=== PATIENT | male | born 1985 | race Caucasian/White ===

== ENCOUNTER 2020-03-22 08:53 | Emergency (ER) | payer OTHER ==
[~2020-03-22] VITALS: Ht 165 cm; Wt 95.0 kg
[2020-03-22 09:00] VITALS: BP 163/110
[2020-03-22] MEDS ORDERED: TRZ50T PO (09:31)
[2020-03-22] MEDS ORDERED: ARIP20TA9 PO (09:31)
[2020-03-22] MEDS ORDERED: HYDR50CA3 PO (09:31)
[2020-03-22] MEDS ORDERED: LITH300T3 PO (09:31)
[2020-03-22] MEDS ORDERED: LISI10TA2 PO (09:31)
[2020-03-22] MEDS ORDERED: PRAZ5CAP2 PO (09:31)
[2020-03-22] MEDS ORDERED: ALLO300T2 PO (09:31)
[2020-03-22] MEDS ORDERED: MTP100TCR PO (09:31)
[2020-03-22] MEDS ORDERED: LORA-404 PO (09:48)
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
--- NOTE | 2020-03-22 11:05 | NUR ---
PT IN LOBBY OF ED. PT STATES [facility] THAT ARRANGEMENTS CAN BE MADE FOR [place] TO GO [place] [facility]. NURSE STATES HE IS HOMICIDAL. PT DENIES BEING HOMICIDAL AND HAS VERY MINIMAL ANXIETY AT THIS X. EXPLAINED TO THIS RN THAT THERE ARE NO SERVICES AVAILABLE AT THIS X. DR DOES NOT BELIEVE THAT PT QUALIFIES FOR TRANSFER OR INPATIENT CARE AT X.
--- NOTE | 2020-03-22 11:18 | NUR ---
SPOKE TO C[facility]I [facility]SE FROM [facility], NO TRANSPORTATION AVIALABLE TODAY TO [facility] [place], SHE WAS TOLD PT WAS HOMICIDAL. WHEN SPOKE W PT, PT DEINES BEING SUICIAL OR WANTING TO HURT ANYONE ELSE. SHE STATES SHE WAS TOLD BY [place] TRIAGE NURSE THAT HE WAS HOMICIDAL.
--- NOTE | 2020-03-22 11:30 | NUR ---
SPOKE TO PT OUT IN LOBBY OF ED. PT CONT TO DENY BEING SUICIAL OR HOMICIDAL AT THIS X. STATES IS ANGRY W SISTERS BOYFRIEND.
--- NOTE | 2020-03-22 11:51 | NUR ---
SPOKE W [facility]. SHE WILL HAVE [facility] CALL HIM AND TALK W HIM
--- NOTE | 2020-03-22 12:15 | NUR ---
SPOKE Tiesha AVALOS FROM [facility]. TRYING TO CALL PT TO CHECK ON HIM. WHEN NUMBER TAKEN TO PT HE WAS CURRENTLY ON PHONE Tiesha AVALOS, HEARD HIM TAKING SAYING " TELLING HIM HE WAS NOT SUCICIDAL OR HOMICIDAL."
== END 2020-03-22 09:55 | disposition home or self-care (01) ==
LOC: ER 08:56
DX: R45.1 Restlessness and agitation (principal); F31.9 Bipolar disorder, unspecified; F43.10 Post-traumatic stress disorder, unspecified; I10 Essential (primary) hypertension; Z63.8 Other specified problems related to primary support group
CPT/HCPCS: 99283